=== PATIENT | male | born 1980 | race Caucasian/White ===

== ENCOUNTER 2016-10-01 23:55 | Emergency (ER) | payer OTHER | END 2016-10-02 01:27 | disposition home or self-care (01) | LOC: ER 23:55 | DX: S70.02XA Contusion of left hip, initial encounter (principal); S70.12XA Contusion of left thigh, initial encounter; S80.02XA Contusion of left knee, initial encounter; S00.03XA Contusion of scalp, initial encounter; S50.812A Abrasion of left forearm, initial encounter; S50.811A Abrasion of right forearm, initial encounter; S50.312A Abrasion of left elbow, initial encounter; S50.311A Abrasion of right elbow, initial encounter; S20.312A Abrasion of left front wall of thorax, initial encounter; S30.811A Abrasion of abdominal wall, initial encounter; S00.81XA Abrasion of other part of head, initial encounter; Z23 Encounter for immunization; Z90.49 Acquired absence of other specified parts of digestive tract; Z88.8 Allergy status to other drugs, medicaments and biological substances; V03.90XA Pedestrian on foot injured in collision with car, pick-up truck or van, unspecified whether traffic or nontraffic accident, initial encounter; Y92.410 Unspecified street and highway as the place of occurrence of the external cause | CPT/HCPCS: 73502-LT; 73552-LT; 90471; 96374; J1885 ==

== ENCOUNTER 2016-10-11 22:23 | Emergency (ER) | payer OTHER | END 2016-10-11 23:25 | disposition home or self-care (01) | LOC: ER 22:23 | DX: S70.02XA Contusion of left hip, initial encounter (principal); S70.12XA Contusion of left thigh, initial encounter; S80.812A Abrasion, left lower leg, initial encounter; B20 Human immunodeficiency virus [HIV] disease; Z90.49 Acquired absence of other specified parts of digestive tract; Z79.899 Other long term (current) drug therapy; Z88.8 Allergy status to other drugs, medicaments and biological substances; V03.90XA Pedestrian on foot injured in collision with car, pick-up truck or van, unspecified whether traffic or nontraffic accident, initial encounter ==

== ENCOUNTER 2016-11-11 12:10 | Emergency (ER) | payer OTHER | END 2016-11-11 14:12 | disposition home or self-care (01) | LOC: ER 12:10 | DX: S89.92XA Unspecified injury of left lower leg, initial encounter (principal); M25.462 Effusion, left knee; Z90.49 Acquired absence of other specified parts of digestive tract; Z79.899 Other long term (current) drug therapy; Z88.8 Allergy status to other drugs, medicaments and biological substances; W19.XXXA Unspecified fall, initial encounter | CPT/HCPCS: 96372; J2270; J2550 ==

== ENCOUNTER 2016-11-12 09:45 | Emergency (ER) | payer OTHER | END 2016-11-12 13:44 | disposition home or self-care (01) | LOC: ER 09:45 | DX: M23.92 Unspecified internal derangement of left knee (principal); F17.200 Nicotine dependence, unspecified, uncomplicated | CPT/HCPCS: 73721; 96372; J2270; J2550 ==